=== PATIENT | female | born 1950 | race Caucasian/White ===

== ENCOUNTER 2025-03-25 14:04 | Emergency (ER) | payer MEDICARE ==
[~2025-03-25] VITALS: Ht 167.6 cm; Wt 97.5 kg
[2025-03-25 14:09] VITALS: TEMP 98.1
[2025-03-25 14:46] LABS: BASOPHILS % 0.6 % (0.0-1.0); EOSINOPHILS # (AUTO) 0.1 (0.0-0.4); EOSINOPHILS % 1.8 % (0.0-6.0); HEMOGLOBIN 11.6 g/dL (12.0-16.0); LYMPHOCYTES # (AUTO) 1.1 (1.0-3.2); LYMPHOCYTES % 16.4 % (18.0-39.1); MEAN CORPUSCULAR HEMOGLOBIN 29.5 pg (28-32); MEAN CORPUSCULAR HGB CONC 32.2 g/dL (31-35); MEAN CORPUSCULAR VOLUME 91.6 fL (81-99); MONOCYTES # (AUTO) 1.1 (0.2-0.8); MONOCYTES % 16.2 % (4.4-11.3); NEUTROPHILS # (AUTO) 4.4 (2.1-6.9); NEUTROPHILS % 64.1 % (38.7-80.0); PLATELET COUNT 239 x10e3/uL (140-360); RED BLOOD COUNT 3.93 x10e6/uL (3.6-5.1); RED CELL DISTRIBUTION WIDTH 13.7 % (11.7-14.4); WHITE BLOOD COUNT 6.81 x10e3/uL (4.8-10.8)
[2025-03-25 15:12] LABS: INR 0.94; PROTHROMBIN TIME 13.2 seconds (11.9-14.5)
[2025-03-25 15:13] LABS: PARTIAL THROMBOPLASTIN TIME 31.5 seconds (23.8-35.5)
[2025-03-25 15:21] LABS: ALBUMIN/GLOBULIN RATIO 1.1 (0.8-2.0); ANION GAP 17.8 mmol/L (8-16); BILIRUBIN,TOTAL 0.7 mg/dL (0.2-1.2); CALCIUM 9.5 mg/dL (8.4-10.2); CREATININE, SERUM 1.67 mg/dL (0.57-1.11); POTASSIUM 4.8 mmol/L (3.5-5.1); TOTAL PROTEIN 7.5 g/dL (6.5-8.1)
[2025-03-25 15:27] LABS: TROPONIN I 0.018 ng/mL (0-0.300)
[2025-03-25 15:54] VITALS: PULSE 67; PULSE 68; RESP 18; O2SAT 96; O2SAT 97
[2025-03-25 15:55] VITALS: PULSE 67; RESP 18
[2025-03-25] MEDS: ALBUTEROL/IPRATROPIUM 3 ML NEB NEB ONE (15:55)
[2025-03-25] MEDS: METHYLPREDNISOLONE SOD SUCC 125 MG/2ML VIAL IV STA (16:19)
[2025-03-25 17:09] VITALS: PULSE 66; RESP 18; O2SAT 94
[2025-03-25] MEDS ORDERED: PREDNISONE50 MG PO (17:21)
== END 2025-03-25 17:54 | disposition home or self-care (01) ==
LOC: ER 15:24
DX: R06.00 Dyspnea, unspecified (principal); J44.9 Chronic obstructive pulmonary disease, unspecified; R05.9 Cough, unspecified; I10 Essential (primary) hypertension; E78.5 Hyperlipidemia, unspecified; Z98.0 Intestinal bypass and anastomosis status
CPT/HCPCS: 36415; 71045; 80053; 82550; 83735; 83880; 84484; 85025; 85379; 85610; 85730; 93005; 94640; 94799; 99284; J2919